=== PATIENT | female | born 1960 | race Caucasian/White ===

== ENCOUNTER 2024-01-27 08:00 | Outpatient (CLI) | payer MEDICARE, OTHER | END 2024-01-27 23:59 | disposition home or self-care (01) | LOC: LAB.WCP 08:00 | PROVIDERS: ATTEND Physician Assistant Medical | DX: R05.1 Acute cough (principal) ==

== ENCOUNTER 2024-01-27 13:30 | Outpatient (CLI) | payer MEDICARE, OTHER ==
--- NOTE | 2024-01-27 17:36 | XRAY Report ---
PROCEDURE: Chest 2V INDICATIONS: ACUTE COUGH TECHNIQUE: 2 views of the chest were acquired. COMPARISON: None. FINDINGS: Surgical changes and devices: Surgical clips are noted in lower neck. Lungs and pleura: No pleural effusions or pneumothorax. Lungs are clear. Mediastinum: Mediastinal contours appear normal. Heart size is normal. Bones and chest wall: No suspicious bony lesions. Overlying soft tissues appear unremarkable. IMPRESSION: No acute cardiopulmonary process. Reviewed by: Aman Christianson MD on 01/27/2024 5:34 PM PDT Approved by: Aman Christianson MD on 01/27/2024 5:34 PM PDT Station ID: [id number]
== END 2024-01-27 13:45 | disposition home or self-care (01) ==
LOC: DI.N 13:30
PROVIDERS: ATTEND Physician Assistant Medical
DX: R05.1 Acute cough (principal)